=== PATIENT | female | born 1975 | race Caucasian/White ===

== ENCOUNTER 2017-10-07 22:36 | Inpatient (IN) | END 2017-10-21 21:00 | disposition home or self-care (01) | DRG 871 ==

== ENCOUNTER 2019-05-03 02:57 | Emergency (ER) | payer BC ==
[~2019-05-03] VITALS: Ht 160 cm; Wt 168.2 kg
[~2019-05-03 02:57] MED LIST: ACET-2158 PO; AMLO-218 PO; DOCU250C58 PO; FLUO20CA22 PO; GABA300C16 PO; HYDR-3671 PO; IBUP-1542 PO; LISI-525 PO; METO-448 PO; NYST15PO TOP; ONDA4TAB14 PO; PANT40TA4 PO; RIVA20TA5 PO
[2019-05-03 03:10] VITALS: Ht 160 cm; Wt 168.2 kg
[2019-05-03] MEDS ORDERED: ONDANSETRON 4 MG INJ IV STA (03:23)
[2019-05-03] MEDS ORDERED: PANTOPRAZOLE 40 MG INJ IV ONE (03:30)
[2019-05-03] MEDS ORDERED: SOD CHLORIDE 0.9% 500 ML IV ONE (03:30)
[2019-05-03] MEDS ORDERED: KETOROLAC 30 MG INJ IV ONE (04:44)
[2019-05-03 10:50] VITALS: BP 121/66; PULSE 64; RESP 18
== END 2019-05-03 07:54 | disposition home or self-care (01) ==
LOC: E/R 02:57
DX: K80.50 Calculus of bile duct without cholangitis or cholecystitis without obstruction (principal); I10 Essential (primary) hypertension; E11.9 Type 2 diabetes mellitus without complications; E66.9 Obesity, unspecified; Z68.44 Body mass index [BMI] 60.0-69.9, adult; Z79.01 Long term (current) use of anticoagulants; Z86.73 Personal history of transient ischemic attack (TIA), and cerebral infarction without residual deficits
CPT/HCPCS: 36415; 76705; 80053; 83690; 84702; 85025; 96374; 96375; C9113; J1885; J2405; J7040; Z7502